=== PATIENT | female | born 1965 | race Two or more races ===

== ENCOUNTER 2021-09-22 04:12 | Day surgery (SDC) | payer BC ==
[2021-09-21 11:37] VITALS: BMI 39.5
[2021-09-22] MEDS ORDERED: BUPIVACAINE HCL/PF 0.5% (5MG/ML) 10 ML VIAL ONE (07:14)
[2021-09-22] MEDS ORDERED: LIDOCAINE HCL 1%, 10 MG/ML (20ML VIAL) ONE (07:14)
[2021-09-22] MEDS ORDERED: LIDOCAINE HCL/PF 1% SDV 5ML VIAL ONE (07:14)
[2021-09-22] MEDS ORDERED: MIDAZOLAM HCL 2 MG/2 ML SINGLE DOSE VIAL ONE (07:25)
[2021-09-22] MEDS ORDERED: PROPOFOL 20 ML ONE (07:25)
[2021-09-22] MEDS ORDERED: ceFAZolin SODIUM 1 GM VIAL IVPB ONE (07:45)
[2021-09-22] MEDS ORDERED: ONDANSETRON 4 MG/2 ML VIAL IVPUSH PRN (08:13)
[2021-09-22] MEDS ORDERED: oxyCODONE HCL 5 MG TABLET PO PRN ×2 (08:13)
[2021-09-22] MEDS ORDERED: LACTATED RINGERS SOLUTION 1,000 ML IV SCH (08:15)
[2021-09-22] MEDS ORDERED: BUPIVACAINE HCL/PF 0.5% (5MG/ML) 10 ML VIAL IJ ONE (08:43)
[2021-09-22] MEDS ORDERED: LIDOCAINE HCL 1%, 10 MG/ML (20ML VIAL) INF ONE (08:44)
[2021-09-22 11:39] VITALS: BP 156/80; PULSE 65; TEMP 97.1
== END 2021-09-22 11:15 | disposition home or self-care (01) ==
LOC: JASU-SURG 04:12
PROVIDERS: ATTEND Podiatrist Foot Surgery
PROC: 3E0T3TZ Introduction of Destructive Agent into Peripheral Nerves and Plexi, Percutaneous Approach (ICD-10-PCS; principal; 2021-09-22 07:30)
DX: M72.2 Plantar fascial fibromatosis (principal)
CPT/HCPCS: 81025